=== PATIENT | male | born 1950 | race Caucasian/White ===

== ENCOUNTER 2019-04-09 05:50 | Inpatient (IN) | payer OTHER ==
[2019-03-30 11:10] LABS: ABSOLUTE NEUTROPHILS 3.8 thou/uL (1.4-8.2); MONOCYTES 11.4 % (1.0-8.0); WBC 5.8 thou/uL (4.0-11.0)
[2019-03-30 11:11] LABS: URINE BILIRUBIN NEGATIVE (Negative); URINE BLOOD NEGATIVE (Negative); URINE CLARITY CLEAR; URINE COLOR YELLOW; URINE GLUCOSE-RANDOM* NEGATIVE (Negative); URINE KETONES NEGATIVE (Negative); URINE LEUKOCYTES NEGATIVE (Negative); URINE NITRITE NEGATIVE (Negative); URINE PROTEIN (DIPSTICK) TRACE (Negative); URINE SPECIFIC GRAVITY >= 1.030 (1.005-1.035); URINE UROBILINOGEN 0.2 E.U./dl (0.2-1.0)
[2019-03-30 11:12] LABS: BASOPHILS 0.8 % (0.0-2.0); EOSINOPHILS 5.5 % (0.0-3.0); HEMATOCRIT 44.5 % (42.0-52.0); HEMOGLOBIN 14.9 gm/dL (14.0-18.0); LYMPHOCYTES 16.6 % (24.0-44.0); MCH 31.9 pg (26.0-34.0); MCHC 33.5 g/dL (28.0-37.0); PLATELET COUNT 209 thou/uL (150-400); POLYS 65.7 % (36.0-66.0); RBC 4.68 mil/uL (4.50-6.00)
[2019-03-30 11:21] LABS: APTT 24.4 Seconds (24.5-32.8); PROTIME 10.9 Seconds (9.3-11.4)
[2019-03-30 11:27] LABS: ALBUMIN 3.8 g/dL (3.4-5.0); CALCIUM 8.8 mg/dL (8.5-10.1); CREATININE 1.1 mg/dL (0.7-1.3); POTASSIUM 3.7 mmol/L (3.5-5.1); TOTAL BILIRUBIN 0.3 mg/dL (<0.1-1.0)
--- NOTE | 2019-03-31 12:34 | EKG ---
[address] [place] [address] ELECTROCARDIOGRAM REPORT Name: HERNESTO VILLARREALUGHN Room #: PRE IN [facility]#: [id number] Admission: Attend Phys: Elliot Cho MD Discharge: Date of : 52 Report #: [id number] THIS REPORT FOR: //name// [facility] Test Date: 2019-03-30 Test Time: 11:07:32 Pat Name: HERNESTO VILLARREAL Department: Room: Gender: Insurance Policy Clerk: cesar : 1950 Requested By: Elliot Cho Order Number: [id number] MD: Celso Astorga Measurements Intervals [place] Rate: 47 P: 70 [place]: 177 QRS: 8 QRSD: 86 T: 68 QT: 472 QTc: 418 Interpretive Statements Sinus bradycardia Otherwise normal tracing Compared to ECG 11/18/2018 07:29:52 No significant change was found Electronically Signed On 03-31-2019 12:34:27 CDT by Celso Astorga [email or web address] <ELECTRONICALLY SIGNED> By: Celso Astorga MD, [facility] 03/31/19 1234 1107 [id number] Celso Astorga MD, FACC /EPI
[2019-04-09] VITALS (11 sets, daily range): BP systolic 113–178; BP diastolic 51–91
[~2019-04-09] VITALS: Ht 167.6 cm; Wt 35.6 kg
[~2019-04-09 05:50] MED LIST: ALLEGRA ALLERG180 MG PO; AMBIEN 5 MG TABL5 M1 PO; ASPIR 8181 M1 PO; ASPIR 8181 MG PO; AZELASTINE137 MCG/0. INH; BENADRYL25 MG PO; BENICAR20 MG PO; CELEXA20 MG PO; CITALOPRAM HBR40 MG PO; CLOPIDOGREL75 MG PO; COSENTYX S150 MG/1 M; FLEXERIL PO; HUMIRA40 MG/0.1 SQ; HYDROCODON-ACE1 EAC5 PO; INDOMETHACIN 2525 MG PO; LISINOPRIL10 MG PO; METOPROLOL SUCC50 MG PO; MOBIC15 MG PO; NORCO 10-325 T1 EACH PO; NORVASC10 MG PO; PLAVIX 75 MG TA75 M1 PO; PRAVACHOL40 MG PO; PRAVACHOL80 MG PO; PRILOSEC 20 MG20 MG PO; PRINIVIL20 MG PO; PROSCAR 5MG TABL5 MG PO; TRAZODONE HCL100 MG PO; VITAMIN D-32000 UNIT PO; XANAX 0.25 MG0.25 MG PO; ZANTAC 150MG T150 MG PO; ZYRTEC10 M5 PO
[2019-04-09 14:11] LABS: BE(vivo) -5.2 mmol/L (-2 to +3); PCO2 55.2 mmHg (35.0-45.0); PO2 222.8 mmHg (80.0-100.0); sO2 99.3 % (92.0-98.0)
[2019-04-09 14:12] LABS: pH 7.237 (7.360-7.450)
[2019-04-09 14:18] LABS: HEMATOCRIT 41.4 % (42.0-52.0); HEMOGLOBIN 13.7 gm/dL (14.0-18.0); MCH 31.2 pg (26.0-34.0); MCHC 33.1 g/dL (28.0-37.0); MCV 94.3 fL (80.0-100.0); RBC 4.39 mil/uL (4.50-6.00); RDW 13.3 % (10.5-14.5); WBC 11.4 thou/uL (4.0-11.0)
[2019-04-09 15:46] LABS: BE(vivo) -6.4 mmol/L (-2 to +3); HCO3 20.7 mmol/L (22.0-26.0); PCO2 46.7 mmHg (35.0-45.0); PO2 101.5 mmHg (80.0-100.0); sO2 96.8 % (92.0-98.0)
[2019-04-09 15:47] LABS: pH 7.264 (7.360-7.450)
--- NOTE | 2019-04-09 18:30 | NUR ---
PATIENT ARRIVED IN ICU THIS EVENING FROM PACU, ON BIPAP COMPLAINING OF SEVERE PAIN AT THE INCISION SITE AND HIS BACK. FENTANYL METER REPAIR SHOP SUPERVISOR INITIATED SHORTLY AFTER ARRIVAL TO ICU AND INSTRUCTIONS GIVEN. A-LINE, CHEST TUBE TO SUCTION NOTED. CONSULT FOR DR. RUIZ CALLED TO DR. BAILEY WHO WAS RUBBER BALL FINISHER AT THAT TIME. FAMILY UPDATED AND ICU BROCHURE AND PRICACY CODE GIVEN TO FAMILY. PATIENT NOW RESTING AND PAIN CONTROL IMPROVING.
[2019-04-10] VITALS (43 sets, daily range): BP systolic 84–190; BP diastolic 33–87
[2019-04-10 05:01] LABS: HEMATOCRIT 39.6 % (42.0-52.0); HEMOGLOBIN 13.2 gm/dL (14.0-18.0); MCH 31.5 pg (26.0-34.0); MCHC 33.4 g/dL (28.0-37.0); MCV 94.6 fL (80.0-100.0); RBC 4.19 mil/uL (4.50-6.00); RDW 13.3 % (10.5-14.5); WBC 10.4 thou/uL (4.0-11.0)
[2019-04-10 05:04] LABS: CALCIUM 7.9 mg/dL (8.5-10.1); POTASSIUM 4.2 mmol/L (3.5-5.1)
--- NOTE | 2019-04-10 05:47 | NUR ---
RECEIVED REPORT FROM DOMENICO GILES AND ASSUMED PATIENT CARE AT 1900. PATIENT AAOX4 AND IS ON A LINE WALKER PUMP. PATIENT PLACED BACK ON CARDENE GTT FOR SBP 180'S. PATIENT PAIN IS CONTROLLED WITH THE LINE WALKER PUMP. NO ACUTE EVENTS OCCURRED AND PATIENT MONITORED CLOSELY DURING THIS SHIFT.
--- NOTE | 2019-04-10 12:57 | NUR ---
CM ASSESSMENT: CASE OPENED FOR DC PLANNING. CLINICAL INFO REVIEWED. PT IS POD #1 LEFT THORACOTOMY WITH LOBECTOMY FOR DX SQAMOUS CELL CA. PT LIVES IN [place], [place] WITH SPOUSE AND IS RETIRED AND INDEPENDENT WITH ADLS AND DRIVES. HAS CHEST TUBE, TAXONOMY TEACHER FENTANYL, CARDENE GTT. P.T. ORDERED TODAY. NO W/E DC PLANNED. WILL FOLLOW THERHERIBERTO EVALS AND AVAILABLE TO ASSIST WITH COORDINATION OF DC NEEDS.
--- NOTE | 2019-04-10 20:14 | NUR ---
PATIENT PROGRESSING TOWARDS OUTCOME GOALS EVIDENT BY, PATIENT UP IN THE CHAIR THIS AFTERNOON. ADEQUATE PAIN CONTROL, BASAL INFUSION STOPPED PATIENT DROWSEY. INSTRUCTED THAT IT WAS OKAY TO LET HIM SLEEP AND SHE DID NOT NEED TO WAKE HIM UP TO PUSH THE BUTTON, NE CONTINUES TO DAMPEN AND POOR READING AT TIMES, DRESSING CHANGED AND 1/2 INCH SHOWING, BUT INITIALLY A GOOD WAVEFORM, CONINUES TO HAVE A SLOW SEROUS SANG OOZE. POOR APPITIET BUT TAKING PO FLUIDS OK. HAS NOT VOIDED SINCE MELIA PRYOR'D AT 1530 TODAY. PATIENT PAIN GOAL WAS REACHED OF 3/10.
--- NOTE | 2019-04-10 21:57 | NUR ---
ARTERIAL LINE DISCONTINUED AT 194. THE LINE WAS NO LONGER WORKING AND THE WAVEFORM WAS INCORRECT. UPON FURTHER EXAMINATION THE LINE WAS HALF WAY OUT AND NO LONGER A WROKING LINE. PLEASE SEE MY DOCUMENTATION ON THE LINE. WILL CONTINUE TO MONITOR.
[2019-04-11] VITALS (23 sets, daily range): BP systolic 104–181; BP diastolic 44–99
--- NOTE | 2019-04-11 04:04 | NUR ---
WHEN LOOKING AT PT. MAR, I NOTICED THAT THE FENTANYL GTT FOR THE INCOME TAX PREPARER PUMP WAS NOT SCANNED IN FOR THE DOSE THAT WAS STARTED ON 04/10/19 AT 1520. I GOT THE START TIME FROM THE BLUE SHEET THAT WAS SENT DOWN TO PHARMACY EARLIER IN THE SHIFT. I WILL BE FILLING OUT AN INCIDENT REPORT ON THIS MATTER. WILL CONTINUE TO MONITOR.
--- NOTE | 2019-04-11 04:30 | NUR ---
AT 0245 PT. WOKE UP IN PAIN AND RESPIRATIONS WENT UP. PT. ASKED FOR A BREATHING TREATMENT. PT. LUNGS WERE COARSE AND WHEEZY, PT. WAS PLACED ON BIPAP AT THAT TIME TO HELP EASE BREATHING AND PAIN. WILL CONTINUE TO MONITOR.
--- NOTE | 2019-04-11 18:00 | NUR ---
Continued post operative course. VSS, see flowsheet; hypertensive at times, MD aware. Respirations easy and unlabored; no acute distress. Continue to wean O2 as tolerated. CT to water seal; fluctuation with deep breathing; site with old notable drainMD mendy aware. Encouraged to cough and deep breathe and use of incentive spirometry. Left incisional discomfort persists. REGIONAL MERCHANDISING MANAGER dcd. PO pain medications administered as directed. Voiding without difficulty. UO adequate. Tolerating foods and fluids. Encouraged PO intake. Up to chair this afternoon with one assist. Tolerated chair activy; encouraged activity as tolerated. PT following. Spousal support throughout the day. Reinforced post operative course/teaching/goals/expectations, verbalized understanding. Declined bath. Linens changed. Continued progression towards current plan of care goals. No acute events to report.
[2019-04-12] VITALS (24 sets, daily range): BP systolic 98–171; BP diastolic 45–76
[2019-04-12 05:22] LABS: HEMATOCRIT 34.7 % (42.0-52.0); HEMOGLOBIN 11.5 gm/dL (14.0-18.0); MCH 31.6 pg (26.0-34.0); MCHC 33.2 g/dL (28.0-37.0); MCV 94.9 fL (80.0-100.0); RBC 3.65 mil/uL (4.50-6.00); RDW 13.2 % (10.5-14.5); WBC 8.4 thou/uL (4.0-11.0)
[2019-04-12 05:30] LABS: CALCIUM 8.3 mg/dL (8.5-10.1); CREATININE 1.1 mg/dL (0.7-1.3); POTASSIUM 3.8 mmol/L (3.5-5.1)
--- NOTE | 2019-04-12 07:00 | NUR ---
Pt slept well through the night with stable VS and adequate SpO2 on current FiO2. PRN hydrocodones given for c/o generalized discomfort with desired effect achieved. Chest tube drainage minimal and voiding per urinal without difficulty. Am lab results noted, continue with POC.
--- NOTE | 2019-04-12 07:26 | O ---
[facility] [place] [address] OPERATIVE REPORT Name: HERNESTO VILLARREAL Room #: 239-P ADM IN M.R.#: [id number] Admission: 04/09/19 Attend Phys: Elliot Cho MD Discharge: Date of : 52 Report #: [id number] THIS REPORT FOR: //name// CC: DEBORAH Magana DATE OF SERVICE: 04/09/2019 PREOPERATIVE DIAGNOSIS: Pulmonary nodule, left upper lobe of lung. POSTOPERATIVE DIAGNOSIS: Pulmonary nodule, left upper lobe of lung with frozen section revealing squamous cell carcinoma. OPERATION: Bronchoscopy, mediastinoscopy (aborted), and left thoracotomy with upper pulmonary lobectomy. SURGEON: Elliot Cho MD STRIP DEBURRER: MANJIT Yap. ANESTHESIA: General. INDICATIONS: The patient is a 68-year-old with an enlarging left upper lobe pulmonary nodule. There appeared to be no other evidence for metastatic disease on PET scan. FINDINGS AND TECHNIQUE: After general anesthesia was established, flexible diagnostic bronchoscopy was performed. No endobronchial lesions were noted. The patient was positioned and prepped and draped for mediastinoscopy. Exposure was obtained through a low collar incision. Pretracheal space was entered, but I was unable to pass the mediastinoscope because of the thyroid, which was relatively low in the neck. I tried to divide the thyroid isthmus, but even then there was a band of soft tissue, difficult to expose that I could not get behind with digital exploration and I thought that placing our mediastinoscope would be hazardous. Therefore, this procedure was aborted. Hemostasis was satisfactory. The wound was closed in layers. A double lumen endotracheal tube was placed and the patient was positioned with left side up. Exposure was obtained through posterolateral thoracotomy using the fifth interspace and a rib sparing, nerve sparing approach. The lesion in the upper lobe was identified and 2 applications of the stapler [facility] [address] [place] [address] OPERATIVE REPORT Name: HERNESTO VILLARREAL Room #: 239-P [facility] IN .R.#: [id number] Admission: 04/09/19 Attend Phys: Elliot Cho MD Discharge: Date of : 52 Report #: [id number] were used for wedge resection to obtain an excisional biopsy. This was given to pathology and the result of a squamous cell carcinoma was obtained. With this information, the upper lobectomy was performed. The newly complete fissure was exploited to expose the interlobar pulmonary artery. Pulmonary arterial branches to the upper lobe were ligated and divided. Pulmonary venous branches to the upper lobe were ligated and divided. The bronchus was circum-dissected and stapled and divided. The upper lobe was submitted for permanent pathology. At this point, a node dissection was done with additional hilar nodes being sent, also aortopulmonary window was explored and this tissue was sent for pathology. The pulmonary ligament was divided. Chest was irrigated. Hemostasis was ascertained. The bronchial stump was tested and found to be secure. Two chest tubes were brought through separate stab wounds and then the chest was closed using a rib sparing, nerve sparing closure to complete the procedure and the muscle layers, and fascial layers and skin were closed in the usual fashion. The patient was taken to the recovery area in good condition having tolerated the procedure well. All counts were reported as correct. <ELECTRONICALLY SIGNED> By: Elliot Cho MD 04/12/19 0726 1456 1536 Elliot Cho MD /nt
--- NOTE | 2019-04-12 09:00 | NUR ---
Dr Cho dc'd left chest tube. Portable chest film done before an after removal of the tube. Drsg applied to the site by Dr Cho. Out of bed to the bedside chair. at bedside.
--- NOTE | 2019-04-12 18:30 | NUR ---
Poor intake today. PT does not like hospital food or supplement provided. Pt's obtained permission this morning from Dr Cordoba to bring in food from outside hospital.
[2019-04-13] VITALS (30 sets, daily range): BP systolic 111–176; BP diastolic 46–87
--- NOTE | 2019-04-13 04:17 | NUR ---
NO NEW CHANGES. PT. PROGRESSING TOWARDS GOALS. CONTINUE TO FOLLOW POC. PT. IS HOPEFUL TO TRANSFER OUT OF ICU TODAY. WILL CONTINUE TO MONITOR.
--- NOTE | 2019-04-13 16:15 | NUR ---
PT IS ALERT AND ORIENTED X4. LUNGS ARE WHEZZES TO COARSE NOTED. UP TO CHAIR TODAY AND PHYSICAL THERAPY TO WALK TODAY. VOIDS PER URINAL. COMPLAINS OF PAIN HYDROCODIENE GIVEN FOR PAIN MANAGEMENT. FAMILY AT BEDSIDE FOR SUPPORT. EATING A REGUALR DIET WITHOUT ANY DIFFICULTY. BACK DRESSSING SMALL AMOUNT OF DRAINAGE NOTED. SCDS ON BILATERAL. TRANSFER ORDERS IN FOR CCU/ AWAITING A BED FOR AVAILABILITY.
--- NOTE | 2019-04-13 16:35 | NUR ---
FOLLOWING FOR DC PLANNING. CLINCIAL INFO REVIEWED. CHEST TUBE OUT 04/12. WORKED WITH P.T. TODAY AND APPEARS SHOULD BE ABLE TO DC HOME WHEN MEDICALLY STABLE. WILL CONTINUE TO MONITOR THERAPY EVALS AND ASSIST WITH DC NEEDS.
[2019-04-14] VITALS (19 sets, daily range): BP systolic 99–149; BP diastolic 48–77
--- NOTE | 2019-04-14 05:21 | NUR ---
Pt not progressing well despite of being the seventh day of post op recovery.Pt does not seem to be strong enough to use incentive spirometer. Pt refuses activity such as bath and sitting up in chair.
[2019-04-14 08:33] LABS: HEMATOCRIT 38.2 % (42.0-52.0); HEMOGLOBIN 12.9 gm/dL (14.0-18.0); MCH 31.5 pg (26.0-34.0); MCHC 33.8 g/dL (28.0-37.0); MCV 93.2 fL (80.0-100.0); WBC 7.2 thou/uL (4.0-11.0)
[2019-04-14 08:38] LABS: PLATELET COUNT 243 thou/uL (150-400)
[2019-04-14 09:02] LABS: ABSOLUTE NEUTROPHILS 5.5 thou/uL (1.4-8.2); PLATELET ESTIMATE NORMAL
[2019-04-14] MEDS ORDERED: ACETAMINOPHEN325 M1 PO (13:11)
[2019-04-14] MEDS ORDERED: IPRAT-ALBUT 0.5-3 ML INH (13:11)
[2019-04-14] MEDS ORDERED: HYDROCODON-ACE1 EAC7 PO (13:11)
[2019-04-14] MEDS ORDERED: MIRALAX17 GM PO (13:11)
--- NOTE | 2019-04-14 13:40 | NUR ---
PT TAKEN TO ROOM 218 REPORT GIVEN TO ASSUME CARE TRANSFER ORDERS IN THE COMPPUTER. AMBULATED [address] WITH NURSING STAFF UPON GETTING TO ROOM. ACCOMPANYING PT WITH BELONGINGS NO ISSUES OR CONCERNS NOTED. VS STABLE ON ROOM AIR.PO PAIN MEDS GIVEN FOR DISCOMFORT
--- NOTE | 2019-04-14 14:14 | NUR ---
PLANS FOR DC HOME TODAY WITH HH AND WALKER. MET WITH PT AND SPOUSE. THEY ARE AWARE AND AGREEABLE WITH DC HOME TODAY AND BOTH PT AND SPOUSE DESIRE HOME HEALTH RN/PT/OT. REVIEWED PROVIDER LIST FOR PT'S SERVICE AREA, PT AND SPOUSE WITHOUT PREFERENCE. PROVIDER PLUS WILL ISSUE WALKER PRIOR TO DC AND HOME HEALTH REFERRAL TO [facility] PER DC CHEF FRENCH. CHOICE LETTER COOMPLETED AND ON CHART. RN UPDATED.
--- NOTE | 2019-04-14 14:38 | NUR ---
FAXED REFERRAL TO [facility] SPOKE WITH RENARD IN ADM THEY DO GO TO [facility] FAXED REFERRAL AND THEY CAN ACCEPT PT. FAXED DC ORDERS/SUMMARY RECEIVED CONFIRMATION AND SPOKE WITH INTAKE THEY WILL NOTIFY PT'S TIME OF VISITS.
[2019-04-14] MEDS ORDERED: NEBULIZER MISCELL (16:29)
--- NOTE | 2019-04-14 17:19 | NUR ---
FAXED REFERRAL TO [facility] FOR A NEBULIZER SPOKE WITH ROBERTO IN INTAKE SHE RECEIVED REFERRAL AND WILL FORWARD REFERRAL TO THEIR [place] OFFICE AND THEY WILL NOTIFY PT TIME OF DELIVERY.
--- NOTE | 2019-04-14 17:39 | NUR ---
PT TRANSFERED TO THE UNIT FORM THE ICU - ORIENTED TO ROOM AND BEDSPACE. PT AMBULATED IN THE HALLS WITH USE OF WALKER. GIVEN HYDROCODONE FOR PAIN WITH GOOD RELIEF. PT HOME THIS EVEINING, - INSTRUCTION RE HOME MEDS/ CARE AND FOLLOW UP GIVEN TO PATIENT AND SPOUSE - STATED UNDERSTANDING OF ONSTRUCTION GIVEN. MONITOR AND IV REMOVED PRIOR TO D/C. LEFT UNIT VIA WHEELCHAIR HOME VIA PVT VEHICLE ACCOMPAINIED BY - NO CO'S AT TIME OF D/C.
--- NOTE | 2019-04-15 11:54 | NUR ---
F/U WITH [facility] IN [place] SPOKE WITH NEEL IN INTAKE SHE NEEDED SCRIPT SIGNED WITH PUL. DX FAXED SIGNED SCRIPT AND RECEIVED CONFIRMATION FROM NEEL THAT THEY HAVE EVERYTHING THEY NEEDED SIGNED AND THEY NOTIFIED PT THAT THEY WILL BE OUT WITH NEBULIZER THIS AFTERNOON.
--- NOTE | 2019-04-22 17:06 | PATH ---
[facility] [place] [address] PATHOLOGY RPT PROCEDURE Name: HERNESTO VILLARREAL Room #: 218-P [facility] IN M.R.#: [id number] Admission: 04/09/19 Date of : 52 Discharge: 04/14/19 Report #: [id number] Path Case #: [id number] [facility] Accession Number: [id number] . 01 Material submitted: . PART A: lobe - WEDGE RESECTION LEFT UPPER LOBE - FS. Modifiers: left, upper PART B: lymph node - LEFT HILAR LYMPH NODE #1 PART C: lymph node - LEFT HILAR LYMPH NODE #2 PART D: lung - LEFT UPPER LOBE. Modifiers: left, upper PART E: lymph node - AP WINDOW #1 PART F: lymph node - AP WINDOW #2 . 01 Clinical history: . Pre-op diagnosis: Pulmonary nodules, mediastinal lymphadenopathy Post-op diagnosis: Squamous cell carcinoma . 02 Frozen section diagnosis: . FROZEN SECTION DIAGNOSIS Lung, left upper lobe, wedge resection: - Invasive squamous cell carcinoma. . Findings relayed to Dr. Link at the time of the procedure. . (SANA:moshe; 04/09/2019) . GROSS DESCRIPTION Part A is received fresh and it is labeled "wedge resection left upper lobe" and it consists of a wedge resection of lung measuring 7.5 x 2.7 x 2.5 cm in greatest dimension. The pleural surface is smooth and light pink/red. Two staple lines are present along one side of the specimen. The staple lines measure 4.5 and 4.0 cm in greatest dimension. The pleural surface is inked and the specimen is serially sectioned. Cut sections show a firm, 2.0 x 2.0 x 2.1 cm pink-white mass. This mass is grossly located approximately 1 mm from the pleural surface and at least 5 mm away from the closest staple line. A software support representative section through the mass is frozen on block A1. The frozen remnant is submitted in block A1. Two additional software support representative sections of the mass are submitted in blocks A2 and A3. Block A4 contains grossly normal lung parenchyma away from the mass. (SANA:moshe; 04/09/2019) . Frozen section performed at [facility], [address] [place], [place] [address], [place] [address]. KEN/KAMI . 02 Diagnosis: A. Lung, left upper lobe, wedge resection: - MODERATELY-DIFFERENTIATED SQUAMOUS CELL CARCINOMA MEASURING 2.[address] CM IN [address] [address] PATHOLOGY RPT PROCEDURE Name: CHERELLETYRELMARU COY Room #: 218-P DIS IN M.R.#: [id number] Admission: 04/09/19 Date of : 52 Discharge: 04/14/19 Report #: [id number] Path Case #: [id number] GREATEST DIMENSION. - Margins of resection free of malignancy; closest stapled margin is 0.5 cm away. . B. Lymph node (1), left hilar lymph node, biopsy: - Reactive changes along with pigmented macrophages; negative for malignancy (0/1). . C. Lymph node (1), left hilar lymph node #2, biopsy: - Reactive changes along with pigmented macrophages; negative for malignancy (0/1). . D. Lung, left upper lobe, lobectomy: - Reactive changes along with emphysema. - Negative for malignancy. - Bronchial and vascular margins widely free of malignancy. . E. Fibroadipose tissue, AP window #1, biopsy: - Reactive and congested tissue; negative for malignancy. . F. Lymph node (1), AP window #2, biopsy: - Reactive changes along with pigmented macrophages; negative for malignancy (0/1). . (IUV:mml; 04/14/2019) . . . . Surgical Pathology Cancer Case Summary . Protocol posting date: December 2016 . LUNG: Procedure- Wedge resection followed by Lobectomy Specimen Laterality- Left Tumor Site- Upper lobe of lung Tumor Size- 2.1 cm in greatest dimensions Tumor Focality- Single tumor Histologic Type- Squamous cell carcinoma Histologic Grade- G2: Moderately differentiated Spread Through Air Spaces- Not identified Visceral Pleura Invasion- Not identified Lymphovascular Invasion- Not identified Direct Invasion of Adjacent Structures- No adjacent structures present Margins- All margins are uninvolved by tumor Margins examined: Bronchial, Vascular and Visceral Pleura Distance of invasive carcinoma from closest margin (centimeters): 0.[address] [address] PATHOLOGY RPT PROCEDURE Name: HERNESTO VILLARREAL Room #: 218-P DIS IN M.R.#: [id number] Admission: 04/09/19 Date of : 52 Discharge: 04/14/19 Report #: [id number] Path Case #: [id number] Specify closest margin: Visceral pleura Treatment Effect- No known presurgical therapy Regional Lymph Nodes- Number of Lymph Nodes Examined: 3 Specify ortega station(s) examined: Hilar nodes and AP window #2 . . Pathologic Stage Classification (pTNM, AJCC 8th Edition) . TNM Descriptors- None Primary Tumor (pT) pT1c: Tumor >2 cm but =3 cm in greatest dimension Regional Lymph Nodes (pN) pN0: No regional lymph node metastasis . Distant Metastasis (pM): pMx (unknown) . (IUV:mml; 04/14/2019) [facility] 04/14/2019 1243 Local . 02 Comment: Properly-controlled immunohistochemical stains are performed on several blocks: . P63 (block A3): Shows strong nuclear reactivity present within the tumor consistent with squamous cell carcinoma . TTF-1 (block A3): Non-reactive . CD34: (block D3): Reactive within the vessels as well as the alveolar spaces throughout the lung parenchyma . Dr. Cameron Velazquez has seen software support representative slide of part A and concurs with the diagnosis rendered. . (IUV:mml; 04/14/2019) . 02 Electronically signed: . Audra Agee MD, Pathologist NPI- [id number] . 01 Gross description: . A. PLEASE SEE FROZEN SECTION GROSS DESCRIPTION. . B. The specimen is received in formalin, labeled "Livermore White, left hilar lymph node #1". Received is a segment of brown-black lobulated tissue measuring 1.2 x 0.9 x 0.5 cm in greatest dimensions. The specimen is submitted entirely in cassette B1. . [facility] [place] [address] PATHOLOGY RPT PROCEDURE Name: HERNESTO VILLARREAL Room #: 218-P [facility] IN M.R.#: [id number] Admission: 04/09/19 Date of : 52 Discharge: 04/14/19 Report #: [id number] Path Case #: [id number] C. The specimen is received in formalin, labeled "Livermore White, left hilar lymph node #2". Received is a segment of brown-black lobulated tissue measuring 0.6 x 0.4 x 0.3 cm in greatest dimensions. The specimen is submitted entirely in cassette C1. . D. The specimen is received in formalin, labeled "Livermore White, left upper lobe". Received is a 237 g lobectomy specimen measuring 17.1 x 15.8 x 3.0 cm in greatest dimensions. There are multiple sutures present along the hilar aspect, as well as several small mike. This margin is inked black. 2.9 cm adjacent to the surgical margin, there is a linear staple line measuring 9.8 cm in length. The pleural surface is pink-manrique to manrique-black and displays irregular in contour/raised black areas ranging in size from 0.1 to 0.5 cm. Sectioning reveals light null to red-brown cut surfaces throughout with no grossly distinct nodules or lesions. Thorough examination of the hilar aspect reveals no identifiable lymph nodes. The specimen is submitted representatively as follows: . D1 bronchial and vascular margins D2-D3 software support representative sections immediately adjacent to linear staple line adjacent to surgical margin D4-D6 software support representative sections of the specimen away from staple line. . E. The specimen is received in formalin, labeled "Hernesto Villarreal, AP window #1". Received is a segment of yellow-null lobulated tissue measuring 2.8 x 1.5 x 0.5 cm in greatest dimensions. The specimen is submitted entirely in cassette E1. . F. The specimen is received in formalin, labeled "Hernesto Villarreal, AP window #2". Received is a segment of yellow-null lobulated tissue measuring 2.4 x 1.1 x 0.4 cm in greatest dimensions. The specimen is submitted entirely in cassette F1. (CAA; 04/10/2019) [facility] 04/10/2019 1502 Local . 02 Pathologist provided ICD-10: C34.12, J43.9 . 02 CPT . 416872, 973134, 770170, 025970, 605092, 919787, A03337, Z52899, 895780 Specimen Comment: A courtesy copy of this report has been sent to Specimen Comment: [phone], , . Specimen Comment: Report sent to ,DR WALLACE / DR BAKER Specimen Comment: Report sent to Performed at: [address], [place] [address] MD Jose Alejandro Denise MD Phone: [phone] Performed at: [address] [address] PATHOLOGY RPT PROCEDURE Name: HERNESTO VILLARREAL Room #: 218-P DIS IN M.R.#: [id number] Admission: 04/09/19 Date of : 52 Discharge: 04/14/19 Report #: [id number] Path Case #: [id number] [address] [id number] MD Audra Agee MD Phone: [phone]
== END 2019-04-14 17:30 | disposition home health service (06) | DRG 163 ==
LOC: ICU 05:50 → TBA 05:50 → OR 06:21 → EDSTATUS 06:22 → PRE 06:24 → ICU 14:55 → 2N 04-14 13:48 → ENTRNSPT 04-14 17:22 → 2N 04-14 17:30
PROVIDERS: Hospitalist; Pediatrics; Physician Assistant; ADMIT Surgery Vascular Surgery
PROC: 0BBG0ZZ Excision of Left Upper Lung Lobe, Open Approach (ICD-10-PCS; principal; 2019-04-09)
PROC: 0BJ08ZZ Inspection of Tracheobronchial Tree, Via Natural or Artificial Opening Endoscopic (ICD-10-PCS; 2019-04-09)
PROC: 5A09357 Assistance with Respiratory Ventilation, Less than 24 Consecutive Hours, Continuous Positive Airway Pressure (ICD-10-PCS; 2019-04-09)
PROC: 0WJC4ZZ Inspection of Mediastinum, Percutaneous Endoscopic Approach (ICD-10-PCS; 2019-04-09)
PROC: 0BTG0ZZ Resection of Left Upper Lung Lobe, Open Approach (ICD-10-PCS; 2019-04-09)
PROC: 5A09357 Assistance with Respiratory Ventilation, Less than 24 Consecutive Hours, Continuous Positive Airway Pressure (ICD-10-PCS; 2019-04-10)
PROC: 5A09357 Assistance with Respiratory Ventilation, Less than 24 Consecutive Hours, Continuous Positive Airway Pressure (ICD-10-PCS; 2019-04-11)
DX: C34.12 Malignant neoplasm of upper lobe, left bronchus or lung (principal); J96.01 Acute respiratory failure with hypoxia; F41.9 Anxiety disorder, unspecified; K21.9 Gastro-esophageal reflux disease without esophagitis; I10 Essential (primary) hypertension; E78.5 Hyperlipidemia, unspecified; F43.10 Post-traumatic stress disorder, unspecified; R91.1 Solitary pulmonary nodule; R59.0 Localized enlarged lymph nodes; F32.9 Major depressive disorder, single episode, unspecified; L40.9 Psoriasis, unspecified; F17.200 Nicotine dependence, unspecified, uncomplicated; E78.00 Pure hypercholesterolemia, unspecified; I25.10 Atherosclerotic heart disease of native coronary artery without angina pectoris; J30.9 Allergic rhinitis, unspecified; J43.9 Emphysema, unspecified; Z86.010 Personal history of colon polyps; Z85.46 Personal history of malignant neoplasm of prostate; I25.2 Old myocardial infarction; Z95.5 Presence of coronary angioplasty implant and graft; Z79.899 Other long term (current) drug therapy; Z79.82 Long term (current) use of aspirin; Z98.52 Vasectomy status; Z98.42 Cataract extraction status, left eye; Z98.41 Cataract extraction status, right eye; Z82.49 Family history of ischemic heart disease and other diseases of the circulatory system; Z90.49 Acquired absence of other specified parts of digestive tract; Z85.828 Personal history of other malignant neoplasm of skin; Z92.3 Personal history of irradiation
CPT/HCPCS: 10078; 10204; 50010; 50101; 50386; 50403; 50417; 50455; 50497; 50739; 50740; 51301; 52088; 52191; 52301; 52303; 54118; 56524; 56525; 56526; 56527; 56528; 57116; 62110; 62900; 65040; 65105; 70005